=== PATIENT | male | born 1970 | race Caucasian/White ===

== ENCOUNTER 2016-10-30 11:39 | Emergency (ER) | payer SELFPAY ==
[2016-10-30] MEDS ORDERED: Diph,Pert(Acell),Tet Vac 0.5 ML SYR IM ONE (11:42)
--- NOTE | 2016-10-30 12:04 | Emergency Department Record ---
History of Present Illness - General Chief Complaint: Laceration(s) Stated Complaint: hand LAC Time Seen by Provider: 10/30/16 11:42 Source: Patient, Family Mode of Arrival: Ambulatory Limitations: No limitations - History of Present Illness Initial Commments: 45 yo male presents have cutting himself with a clean utility knife while cutting weed whacker line. He cut the left hand on the palm side on the thenar eminence. No numbness or tingling. No weakness. No loss of ROM or function. No contamination. Unknown last tetanus. -: Minutes(s) Extremity Location: Left: Hand Place: Home, Work Context: Accidental, Sharp object use Associated Symptoms: None Treatments Prior to Arrival: Bandage - [place] Coma Scale Eye Response: (4) Open spontaneously Motor Response: (6) Obeys commands Verbal Response: (5) Oriented [place] Total: 15 - Related Data Home Medications Medication Instructions Recorded Confirmed Last Taken No Home Med [NO HOME MEDS] 10/30/16 10/30/16 Unknown Allergies Allergy/AdvReac Type Severity Reaction Status Date / Time No Known Drug Allergies Allergy Verified 10/30/16 11:45 Review of Systems Constitutional: Denies: Chills, Fever, Malaise, Weakness Eyes: Denies: Eye discharge ENT: Denies: Congestion, Throat pain Respiratory: Denies: Cough Cardiovascular: Denies: Chest pain, Syncope Endocrine: Denies: Fatigue Gastrointestinal: Denies: Abdominal pain, Nausea, Vomiting Genitourinary: Denies: Dysuria, Frequency Musculoskeletal: Denies: Arthralgia, Back pain, Myalgia, Neck pain Skin: Reports: Other (3cm laceration). Denies: Bruising, Change in color, Rash Neurological: Denies: Headache, Numbness, Tingling, Weakness Psychiatric: Denies: Anxiety Hematological/Lymphatic: Denies: Blood Clots, Easy bleeding, Easy bruising Physical Exam - General General Appearance: Alert, Oriented x3, Cooperative, No acute distress Limitations: No limitations - Head Head exam: Atraumatic, Normal inspection - Eye Eye exam: Normal appearance - ENT ENT exam: Normal exam Ear exam: Normal external inspection Nasal Exam: Normal inspection Mouth exam: Normal external inspection - Neck Neck exam: Normal inspection - Cardiovascular Peripheral Pulses: 2+: Radial (L) - Rectal Rectal exam: Deferred - exam: Deferred - Extremities Extremities exam: Full ROM, Normal capillary refill. negative: Normal inspection, Joint swelling, Tenderness Image of Hand: 1 - 3cm laceration, clean, no groos contamination, full ROM with thumb flexion and extension, construction administrative assistant, apposition of thumb to fingers. It a bloodless field no visible FB or tendon injury. - Neurological Neurological exam: Alert, Oriented X3. negative: Motor sensory deficit - Psychiatric Psychiatric exam: Normal affect, Normal mood - Skin Type of lesion: Laceration Course - Reevaluation(s) Reevaluation #1: 10/30/16 12:11 PROCEDURE 3CM Hand Laceration Betadine prep Lidocaine with epi 2.5ml local Shur Clen cleaning NS irrigation Bloodless field, no FB Prolene 3-0 #7 Good wound approximation Tolerated well We discussed home care, reasons to return immediately, and suture removal Disposition Disposition: Discharge Clinical Impression: Laceration of hand Qualifiers: Encounter type: initial encounter Foreign body presence: without foreign body Laterality: left Qualified Code(s): S61.412A - Laceration without foreign body of left hand, initial encounter Disposition: Home, Self-Care Condition: (1) Good Instructions: Laceration (ED) Additional Instructions: Suture removal in 12 days Return immediately if warm, red, pus, drainage or any concerns about healing or infection Keep dry and clean Forms: Patient Portal Access Time of Disposition: 12:05 Quality - Quality Measures Quality Measures: N/A - Blood Pressure Screening Does Patient Have Any of the Following: No Blood Pressure Classification: Pre-Hypertensive BP Reading Systolic Measurement: 129 Diastolic Measurement: 81 Screening for High Blood Pressure: < Pre-Hypertensive BP, F/U Documented > [ [id number]] Pre-Hypertensive Follow-up Interventions: Referral to alternative/primary care provider.
== END 2016-10-30 12:23 | disposition home or self-care (01) ==
LOC: ER 11:39
DX: S61.412A Laceration without foreign body of left hand, initial encounter (principal); W26.0XXA Contact with knife, initial encounter; Y92.009 Unspecified place in unspecified non-institutional (private) residence as the place of occurrence of the external cause
CPT/HCPCS: 12002; 90715; 96372; 99283